=== PATIENT | female | born 1990 | race African-American/Black ===

== ENCOUNTER 2020-09-14 12:41 | Emergency (ER) | payer MEDICAID ==
[~2020-09-14] VITALS: Ht 165.1 cm; Wt 90.7 kg
[~2020-09-14 12:41] MED LIST: BACTRIM DS TAB1 EAC1 ORAL; MUPIROCIN22 GM TOPIC
--- NOTE | 2020-09-14 12:45 | NUR ---
ED Nurse Note: Pt ambulated to ED from home d/t headache x 2 weeks. Pt is AOx4, calm and cooperative to care, pt denies any dizziness nor blurring of vision; VSS, on RA, afebrile on triage.
[2020-09-14] MEDS ORDERED: DiphenhydrAMINE 50mg/ml Inj IVP ONE (13:15)
[2020-09-14] MEDS ORDERED: Ketorolac 30mg Inj IV ONE (13:15)
--- NOTE | 2020-09-14 13:15 | NUR ---
ED Nurse Note: Pt was taken to CT
[2020-09-14 13:21] VITALS: BP 119/78
--- NOTE | 2020-09-14 13:23 | NUR ---
ED Nurse Note: Pt returned from CT on stable condition.
--- NOTE | 2020-09-14 13:47 | Diagnostic Imaging Report ---
Indication: Headache Technique: Continuous helical CT scanning of the head was performed without intravenous contrast material. Axial and coronal 5 mm sections were generated. Radiation dose was minimized using automated exposure control Dose: Total Dose Length Product - DLP 1232.[address] Dose Index - CTDIvol(s) 53.4 mGy. Comparison: None FINDINGS: There is no acute intracranial hemorrhage, mass effect or cortical edema. There is no shift the midline structures. Topete-white differentiation appears preserved. There is no hydrocephalus or effacement of the basal cisterns. Mastoid air cells are clear. There is paranasal sinus disease with complete opacification of the partially visualized left maxillary sinus as well as opacification of some left ethmoid air cells with no acute skull fractures. IMPRESSION: No evidence of acute intracranial hemorrhage, mass effect or cortical edema. MRI may be obtained for more sensitive evaluation as clinically indicated. Paranasal sinus disease with complete opacification of the left maxillary sinus. Correlate for acute sinusitis. The CT scanner at [facility] is accredited by the [employer] and the scans are performed using protocols designed to limit radiation exposure to as low as reasonably achievable to attain images of sufficient resolution adequate for diagnostic evaluation.
[2020-09-14] MEDS ORDERED: IBUPROFEN600 M1 ORAL (14:06)
--- NOTE | 2020-09-14 14:25 | Emergency Room Report ---
History of Present Illness General Chief Complaint: Headache Source: Patient, EMS Present Illness HPI 30-year-old female here with 2 weeks of headache and 1 day of blurry vision. Patient says that the symptoms started insidiously. Never started suddenly. Headache is diffuse in nature. She says that she does suffer from headaches frequently. Has not take any medications for these symptoms. Says that her entire field of vision feels blurry today and she has photophobia. Denies focal numbness or weakness, fevers, chills, neck stiffness, chest pain, palpitations, shortness of breath, back pain, abdominal pain, nausea, vomiting, diarrhea, dysuria. 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 Patient History Last Menstrual Period: 2 months Nursing Documentation-[facility] Past Medical History: No Stated History Review of Systems All Other Systems: negative except mentioned in HPI Physical Exam Vital Signs Date Time Temp Pulse Resp B/P (MAP) Pulse Ox O2 Delivery O2 Flow Rate FiO2 09/14/20 12:35 98.2 116 20 119/78 (92) 97 Room Air Sp02 EP Interpretation: reviewed, normal General Appearance: no apparent distress, alert, non-toxic Head: normocephalic, atraumatic Eyes: bilateral eye normal inspection, bilateral eye PERRL ENT: hearing grossly normal, normal pharynx, no angioedema, normal voice Neck: full range of motion, supple/symm/no masses Respiratory: chest non-tender, lungs clear, normal breath sounds, speaking full sentences Cardiovascular #1: regular rate, rhythm, no edema Cardiovascular #2: 2+ carotid (R), 2+ carotid (L), 2+ radial (R), 2+ radial (L), 2+ dorsalis pedis (R), 2+ dorsalis pedis (L) Gastrointestinal: normal bowel sounds, non tender, soft, non-distended, no guarding, no rebound Rectal: deferred Genitourinary: normal inspection, no CVA tenderness Musculoskeletal: back normal, normal range of motion, gait/station normal, non- tender Neurologic: alert, motor strength/tone normal, oriented x3, sensory intact, responsive, speech normal Psychiatric: judgement/insight normal, memory normal, mood/affect normal, no suicidal/homicidal ideation Lymphatic: no adenopathy Medical Decision Making Diagnostic Impression: Primary Impression: Headache ER Course Procedure: CT Head no Contrast Indication: Headache Technique: Continuous helical CT scanning of the head was performed without intravenous contrast material. Axial and coronal 5 mm sections were generated. Radiation dose was minimized using automated exposure control Dose: Total Dose Length Product - DLP 1232.[address] Dose Index - CTDIvol(s) 53.4 mGy. Comparison: None FINDINGS: There is no acute intracranial hemorrhage, mass effect or cortical edema. There is no shift the midline structures. Topete-white differentiation appears preserved. There is no hydrocephalus or effacement of the basal cisterns. Mastoid air cells are clear. There is paranasal sinus disease with complete opacification of the partially visualized left maxillary sinus as well as opacification of some left ethmoid air cells with no acute skull fractures. IMPRESSION: No evidence of acute intracranial hemorrhage, mass effect or cortical edema. MRI may be obtained for more sensitive evaluation as clinically indicated. ddx: Tension headache, migraine, cluster, mass-tumor, meningitis, sah, temporal arteritis, glaucoma 30-year-old female here with headache for 2 weeks. Due to the patient's new neurologic complaint of left-sided visual changes patient underwent a CT head. This was unremarkable. She received Compazine, Benadryl, Toradol, IV fluids with good resolution of her symptoms. Patient was discharged in stable condition. Last Vital Signs Date Time Temp Pulse Resp B/P (MAP) Pulse Ox O2 Delivery O2 Flow Rate FiO2 09/14/20 13:21 98.2 20 119/78 97 Room Air 09/14/20 12:35 116 Disposition: HOME, SELF-CARE Condition: Stable Scripts Ibuprofen* (MOTRIN*) 600 Mg Tablet 600 MG ORAL Q6H PRN for FOR PAIN, #20 TAB 0 Refills Prov: Ronny Kingsley M.D. 09/14/20 Referrals: On License Of [facility] Patient Instructions: Head Injury, Adult Ronny Kingsley M.D. Sep 14, 2020 14:25
[2020-09-14 14:36] VITALS: BP 120/80
--- NOTE | 2020-09-14 14:36 | NUR ---
ER DISCHARGE NOTE: Patient is cleared to be discharged per ERMD, pt is aox4, on room air, with stable vital signs. pt was given dc and prescription instructions, pt was able to verbalize understanding, pt id band and iv site removed without complications. pt is able to ambulate with steady gait. pt took all belongings.
== END 2020-09-14 14:36 | disposition home or self-care (01) ==
LOC: EDBD 12:41 → EMR 14:05
DX: R51.9 Headache, unspecified (principal); H53.8 Other visual disturbances; J32.9 Chronic sinusitis, unspecified
CPT/HCPCS: 70450; 96361; 96374; 96375; J0780; J1200; J1885; J7030; Z7502; 99284